=== PATIENT | female | born 1980 | race Caucasian/White ===

== ENCOUNTER 2025-02-25 13:10 | Observation (INO) | payer OTHER ==
[2025-02-25 14:16] LABS: Basophils # (A) 0.02 10*3/uL (0.00-0.10); Basophils % (A) 0.2 %; Eosinophils # (A) 0.14 10*3/uL (0.04-0.35); Eosinophils % (A) 1.3 %; HCT 38.3 % (37.2-46.3); HGB 13.6 g/dL (12.0-15.0); Lymphocytes # (A) 2.14 10*3/uL (0.90-5.00); Lymphocytes % (A) 19.4 %; MCH 28.8 pg (27.0-32.0); MCHC 35.5 g/dL (32.0-37.0); MCV 81.0 fL (80.0-97.0); Monocytes # (A) 0.52 10*3/uL (0.20-1.00); Monocytes % (A) 4.7 %; Neutrophils # (A) 8.18 10*3/uL (1.80-7.70); Neutrophils % (A) 74.0 %; Platelet Count 247 10*3/uL (140-440); RBC 4.73 10*6/uL (4.10-5.20); RDW 12.7 % (11.5-14.5); WBC 11.04 10*3/uL (4.50-10.00)
[2025-02-25 14:30] LABS: ALT 19 U/L (4-34); AST 26 U/L (14-36); African American GFR (CKD) >90 (>60 ml/min/1.73 sqM); Albumin 4.0 g/dL (3.5-5.0); Alkaline Phosphatase 83 U/L (38-126); Anion Gap 9 mmol/L; Blood Urea Nitrogen 16 mg/dL (7-17); Calcium 9.7 mg/dL (8.4-10.2); Carbon Dioxide 30 mmol/L (22-30); Chloride 97 mmol/L (98-107); Glucose 94 mg/dL (74-99); Magnesium 1.9 mg/dL (1.6-2.3); Non-African American GFR(CKD) >90 (>60 ml/min/1.73 sqM); Potassium 3.5 mmol/L (3.5-5.1); Sodium 136 mmol/L (137-145); Total Protein 6.5 g/dL (6.3-8.2)
--- NOTE | 2025-02-25 14:31 | XR ---
EXAMINATION TYPE: XR chest 2V DATE OF EXAM: 02/25/2025 2:17 PM COMPARISON: None TECHNIQUE: XR chest 2V Frontal and lateral views of the chest. CLINICAL INDICATION:Female, 44 years old with history of Chest Pain; FINDINGS: Patient is rotated which limits evaluation. Lungs/Pleura: There is no evidence of pleural effusion, focal consolidation, or pneumothorax. Pulmonary vascularity: Unremarkable. Heart/mediastinum: Cardiomediastinal silhouette is unremarkable. Musculoskeletal: No acute osseous pathology. IMPRESSION: No acute cardiopulmonary disease/process. [facility], , 02/25/2025 2:29 PM
[2025-02-25] MEDS ORDERED: NITROGLYCERIN SL TABS 0.4 MG TAB SUBLINGUAL PRN (14:32)
--- NOTE | 2025-02-25 14:32 | ED ---
General Adult HPI - General Chief complaint: Chest Pain Stated complaint: Chest pain Time Seen by Provider: 02/25/25 13:20 Source: patient, EMS, RN notes reviewed, old records reviewed Mode of arrival: EMS Limitations: no limitations - History of Present Illness Initial comments: This is a 44-year-old female who presents to the emergency department comp laining of chest pain. Patient states she has a past medical history significant for high blood pressure congestive heart failure smoking history and family history of heart disease. Patient states she was at [facility] since yesterday for fentanyl and methamphetamine abuse. Patient states today she started having chest pain just while she was eating lunch and it became quite severe. Patient denied any radiation of the pain. Patient states she did have some shortness of breath. Patient states on the way end they gave her aspirin and a nitroglycerin and it did seem to reduce her pain. Patient states she still has a subtle amount of pain at this time but it is almost gone. Patient denies any fever chills - Related Data Allergies Allergy/AdvReac Type Severity Reaction Status Date / Time lamotrigine [From Lamictal] Allergy Rash/Hives Verified 02/25/25 13:24 quetiapine [From Seroquel] Allergy Rash/Hives Verified 02/25/25 13:24 Review of Systems ROS Statement: Those systems with pertinent positive or pertinent negative responses have been documented in the HPI. ROS Other: All systems not noted in ROS Statement are negative. Past Medical History Past Medical History: Heart Failure, Hypertension Past Surgical History: Section, Cholecystectomy, Hysterectomy, Ort hopedic Surgery Past Psychological History: Bipolar, Depression Smoking Status: Current every day smoker Past Alcohol Use History: None Reported Past Drug Use History: Methamphetamine General Exam - General Exam Comments Initial Comments: GENERAL: Patient is well-developed and well-nourished. Patient is nontoxic and well-hydrated and is in mild distress. ENT: Neck is soft and supple. No significant lymphadenopathy is noted. Oropharynx is clear. Moist mucous membranes. Neck has full range of motion without eliciting any pain. EYES: The sclera were anicteric and conjunctiva were pink and moist. Extraocular movements were intact and pupils were equal round and reactive to light. Eyelids were unremarkable. PULMONARY: Unlabored respirations. Good breath sounds bilaterally. No audible rales rhonchi or wheezing was noted. CARDIOVASCULAR: There is a regular rate and rhythm without any murmurs gallops or rubs. ABDOMEN: Soft and nontender with normal bowel sounds. SKIN: Skin is clear with no lesions or rashes and otherwise unremarkable. NEUROLOGIC: Patient is alert and oriented x3. Cranial nerves II through XII are grossly intact. Motor and sensory are also intact. Normal speech, volume and content. Symmetrical smile. MUSCULOSKELETAL: Normal extremities with adequate strength and full range of motion. LYMPHATICS: No significant lymphadenopathy is noted PSYCHIATRIC: Normal psychiatric evaluation. Limitations: no limitations Course Vital Signs 02/25/25 13:18 Temperature 98 F Pulse Rate 67 Respiratory 20 Rate Blood Pressure 99/71 O2 Sat by Pulse 99 Oximetry Medical Decision Making - Medical Decision Making EKG is interpreted by myself. EKG shows a sinus rhythm at 65 bpm FL of 134 QRS 101 QT interval is 430 QTc is 441. Patient's EKG shows T wave inversions in leads V1 through V3. There is no ST segment elevation. Was pt. sent in by a medical professional or institution (, PA, BUSINESS OFFICE COORDINATOR, urgent care, hospital, or group home...) When possible be specific @ -No Did you speak to anyone other than the patient for history (EMS, parent, family, police, friend...)? What history was obtained from this source @ -No Did you review nursing and triage notes (agree or disagree)? Why? @ -I reviewed and agree with nursing and triage notes Were old charts reviewed (outside hosp., previous admission, EMS record, old EKG, old radiological studies, urgent care reports/EKG's, group home records)? Report findings @ -No old charts were reviewed Differential Diagnosis? @ -Differential Chest Pain: Stable Angina, Unstable Angina, STEMI, NSTEMI Aortic Dissection, Pneumothorax, Musculoskeletal, Esophageal Spasm GERD, Cholecystitis, Pancreatitis, Zoster, this is not meant to be an all-inclusive list. EKG interpreted by me (3pts min.). @ -As above X-rays interpreted by me (1pt min.). @ -Chest x-ray shows no acute abnormality CT interpreted by me (1pt min.). @ -None done U/S interpreted by me (1pt. min.). @ -None done What testing was considered but not performed or refused? (CT, X-rays, U/S, labs)? Why? @ -None What meds were considered but not given or refused? Why? @ -None Did you discuss the management of the patient with other professionals (professionals i.e. , PA, BUSINESS OFFICE COORDINATOR, lab, RT, psych nurse, pediatric social worker, business law instructor, teacher, navy senior officer, residential case manager)? Give summary @ -[facility] the patient admitted the patient I wrote a bitting orders. Was smoking cessation discussed for >3mins.? @ -No Was critical care preformed (if so, how long)? @ -No Were there social determinants of health that impacted care today? How? (Homelessness, low income, unemployed, alcoholism, drug addiction, transportation, low edu. Level, literacy, decrease access to med. care, correction, rehab)? @ -No Was there de-escalation of care discussed even if they declined (Discuss DNR or withdrawal of care, Hospice)? DNR status @ -No What co-morbidities impacted this encounter? (DM, HTN, Smoking, COPD, CAD, Cancer, CVA, ARF, Chemo, Hep., AIDS, mental health diagnosis, sleep apnea, morbid obesity)? @ -None Was patient admitted / discharged? Hospital course, mention meds given and route, prescriptions, significant lab abnormalities, going to OR and other pertinent info. @ -Patient came in for chest pain. EKG did show some T wave abnormalities. Patient states nitroglycerin on the way end helped her pain. [facility] and a cardiology consult will be placed. Undiagnosed new problem with uncertain prognosis? @ -No Drug Therapy requiring intensive monitoring for toxicity (Heparin, Nitro, Insulin, Cardizem)? @ -No Were any procedures done? @ -No Diagnosis/symptom? @ -Chest pain Acute, or Chronic, or Acute on Chronic? @ -Acute Uncomplicated (without systemic symptoms) or Complicated (systemic symptoms)? @ -Complicated Side effects of treatment? @ -No Exacerbation, Progression, or Severe Exacerbation? @ -No Poses a threat to life or bodily function? How? (Chest pain, [place], [place], pneumonia, PE, COPD, DKA, ARF, appy, cholecystitis, CVA, Diverticulitis, Homicidal, Suicidal, threat to staff... and all critical care pts) @ -Yes this could lead to an [place] and endorgan dysfunction - Lab Data Result diagrams: 02/25/25 13:58 Lab Results 02/25/25 Range/Units 13:58 WBC 11.04 H (4.50-10.00) 10*3/uL RBC 4.73 (4.10-5.20) 10*6/uL Hgb 13.6 (12.0-15.0) g/dL Hct 38.3 (37.2-46.3) % MCV 81.0 (80.0-97.0) fL MCH 28.8 (27.0-32.0) pg MCHC 35.5 (32.0-37.0) g/dL Plt Count 247 (140-440) 10*3/uL MPV 8.9 L (9.5-12.2) fL Immature Gran % (Auto) 0.4 % Neutrophils % 74.0 % Lymphocytes % 19.4 % Monocytes % 4.7 % Eosinophils % 1.3 % Basophils % 0.2 % Immature Gran # 0.04 (0.00-0.04) 10*3/uL Neutrophils # 8.18 H (1.80-7.70) 10*3/uL Lymphocytes # 2.14 (0.90-5.00) 10*3/uL Monocytes # 0.52 (0.20-1.00) 10*3/uL Eosinophils # 0.14 (0.04-0.35) 10*3/uL Basophils # 0.02 (0.00-0.10) 10*3/uL Disposition Clinical Impression: Chest pain Disposition: ADMITTED IP TO THIS [facility] Referrals: Nonstaff,Physician [Primary Care Provider] - 1-2 days Time of Disposition: 14:32
[2025-02-25 14:34] LABS: INR 1.0 (<1.2); Partial Thromboplastin Time 25.9 sec (22.0-30.0); Prothrombin Time 10.6 sec (10.0-12.5)
[2025-02-25 14:38] LABS: NT-Pro-B-Type Natriuretic Pept <20 pg/mL
[2025-02-25] MEDS: ACETAMINOPHEN TAB 325 MG TAB PO PRN (17:54)
[2025-02-25] MEDS: NITROGLYCERIN OINT 1 INCH/GM PACKET TOPICAL SCH (18:59)
[2025-02-26 08:36] VITALS: BP 122/86; PULSE 68; RESP 10; TEMP 98.8
[2025-02-26] MEDS ORDERED: MELATONIN 5 MG TABLET PO PRN (08:40)
[2025-02-26] MEDS ORDERED: ALBUTEROL NEBULIZED 2.5 MG/3 ML INHALATION PRN (08:40)
[2025-02-26] MEDS: buPROPion XL 300 MG TAB.ER.24H PO SCH (09:24)
[2025-02-26] MEDS: buPROPion XL 150 MG TAB.ER.24H PO SCH (09:24)
[2025-02-26] MEDS: ARIPiprazole 5 MG TAB PO SCH (09:24)
[2025-02-26] MEDS: CHLORTHALIDONE 25 MG TAB PO SCH (09:24)
[2025-02-26] MEDS: ESCITALOPRAM 10 MG TAB PO SCH (09:24)
[2025-02-26] MEDS: PATIENT'S OWN (Linaclotide [Linzess] 290 MCG Capsule) PO SCH (09:25)
[2025-02-26] MEDS: ASPIRIN 325 MG TAB PO SCH (09:29)
[2025-02-26] MEDS: ASPIRIN 81 MG PO SCH (09:50)
[2025-02-26] MEDS: ATORVASTATIN 40 MG TAB PO SCH (09:50)
[2025-02-26] MEDS: PANTOPRAZOLE 40 MG TABLET PO SCH (09:50)
[2025-02-26 10:11] LABS: Cholesterol 148.00 mg/dL (0.00-200.00); HDL Cholesterol 40.90 mg/dL (40.00-60.00); LDL Cholesterol,Calculated 77.7 mg/dL (0.0-131.0); Triglycerides 147.00 mg/dL (0.00-149.00); VLDL Calculation 29.40 mg/dL (5.00-40.00)
[2025-02-26 10:16] LABS: Magnesium 1.8 mg/dL (1.6-2.3)
[2025-02-26] MEDS: METHADONE 10 MG TAB PO SCH (13:16)
[2025-02-26] MEDS: METHADONE 5 MG TAB PO SCH (13:18)
--- NOTE | 2025-02-26 15:17 | P.HPIM ---
History of Present Illness H&P Date: 02/26/25 History of present illness; patient 44-year-old lady with past medical history significant for hypertension, congestive heart failure presented the ER for chest pain. Patient is currently undergoing treatment for fentanyl and methamphetamine abuse at [facility]. Patient that she was all right yesterday while eating lunch she started having chest pain of central location, pressure-like, nonradiating ,no aggravating or relieving factor associated with this chest pain. There was no complaint of orthopnea or PND. patient was complaint of shortness of breath at time. There was no episode of diaphoresis during this episode of chest pain. Patient denies any palpitation. Denies any nausea, vomiting abdominal pain. Patient denies any complaint of dizziness. There is no complaint of headache. Because of chest pain, patient came to the ER Initial lab work done in the ER showed WBC 11.04, hemoglobin 13.6, platelet count 247, sodium 130, potassium 3.5, BUN 16, creatinine 0.66, glucose 94, calcium 9.7 magnesium 1.9, TSH 0.426 EKG done in the ER showed heart rate of 65, no ST segment elevation or depression seen, no T-wave inversions seen. Chest x-ray done in the ER showed no acute cardiopulmonary process Patient admitted to internal medicine service REVIEW OF SYSTEMS: CONSTITUTIONAL: No fever, no malaise, no fatigue. HEENT: No recent visual problems or hearing problems. Cardiovascular; as mentioned above PULMONARY: As mentioned above GASTROINTESTINAL: No diarrhea, no nausea, no vomiting, no abdominal pain. NEUROLOGICAL: No headaches, no weakness, no numbness. HEMATOLOGICAL: Denies any bleeding or petechiae. GENITOURINARY: Denies any burning micturition, frequency, or urgency. MUSCULOSKELETAL/RHEUMATOLOGICAL: Denies any joint pain, swelling, or any muscle pain. ENDOCRINE: Denies any polyuria or polydipsia. The rest of the 14-point review of systems is negative. PHYSICAL EXAMINATION: GENERAL: The patient is alert and oriented x3, not in any acute distress. Well developed, well nourished. HEENT: Pupils are round and equally reacting to light. EOMI. No scleral icterus. No conjunctival pallor. Normocephalic, atraumatic. No pharyngeal erythema. No thyromegaly. CARDIOVASCULAR: S1 and S2 present. No murmurs, rubs, or gallops. PULMONARY: Chest is clear to auscultation, no wheezing or crackles. ABDOMEN: Soft, nontender, nondistended, normoactive bowel sounds. No palpable organomegaly. MUSCULOSKELETAL: No joint swelling or deformity. EXTREMITIES: No cyanosis, clubbing, or pedal edema. NEUROLOGICAL: Gross neurological examination did not reveal any focal deficits. SKIN: No rashes. Assessment and plan Chest pain, rule out acute coronary syndrome History of hypertension History of fentanyl and methamphetamine abuse Monitor vital signs Monitor CBC Monitor CMP Continue telemetry monitoring Trend troponins Aspirin, Lipitor Resume breathing treatments Resume lisinopril Cardiology consulted Labs and medication were reviewed.. Continue same treatment. Continue with symptomatic treatment. Resume home medication. Monitor labs and vitals. DVT and GI prophylaxis. Further recommendations as per clinical course of the patient Dictation was produced using [employer] dictation software. please excuse any grammatical, word or spelling errors. Past Medical History Past Medical History: Heart Failure, Hypertension History of Any Multi-Drug Resistant Organisms: None Reported Past Surgical History: Section, Cholecystectomy, Hysterectomy, Orthopedic Surgery Past Anesthesia/Blood Transfusion Reactions: No Reported Reaction Past Psychological History: Bipolar, Depression Smoking Status: Current every day smoker Past Alcohol Use History: None Reported Past Drug Use History: Methamphetamine, Opiates Additional Drug Use History / Comment(s): uses fentanyl and meth currently in [place] for states been using it for meds Medications and Allergies Home Medications Medication Instructions Recorded Confirmed Type ARIPiprazole [Abilify] 5 mg PO DAILY 02/25/25 02/25/25 History Acetaminophen Tab [Tylenol] 650 mg PO Q4H PRN 02/25/25 02/25/25 History Albuterol Inhaler [Ventolin Hfa 2 puff INHALATION RT-QID PRN 02/25/25 02/25/25 History Inhaler] Budesonide/Formoterol Fumarate 1 puff INHALATION RT-BID 02/25/25 02/25/25 History [Symbicort 160-4.5 Mcg Inhaler] Chlorthalidone [Hygroton] 25 mg PO DAILY 02/25/25 02/25/25 History Escitalopram [Lexapro] 10 mg PO DAILY 02/25/25 02/25/25 History Ibuprofen [Motrin Ib] 600 mg PO Q6H PRN 02/25/25 02/25/25 History Linaclotide [Linzess] 290 mcg PO DAILY 02/25/25 02/25/25 History Melatonin 10 mg PO HS 02/25/25 02/25/25 History Potassium Chloride ER [K-Dur 10] 10 meq PO DAILY 02/25/25 02/25/25 History Semaglutide [Wegovy] 1.7 mg SQ TH 02/25/25 02/25/25 History buPROPion HCL [Wellbutrin XL] 150 mg PO DAILY 02/25/25 02/25/25 History buPROPion XL [Wellbutrin XL] 300 mg PO DAILY 02/25/25 02/25/25 History lisinopriL [Zestril] 20 mg PO DAILY 02/25/25 02/25/25 History traZODone HCL [Desyrel] 100 mg PO HS 02/25/25 02/25/25 History Aspirin 81 mg PO DAILY 30 Days #30 tab 02/26/25 Rx Atorvastatin [Lipitor] 40 mg PO DAILY #30 tab 02/26/25 Rx Methadone [Dolophine] 115 mg PO DAILY 02/26/25 02/26/25 History Allergies Allergy/AdvReac Type Severity Reaction Status Date / Time lamotrigine [From Lamictal] Allergy Rash/Hives Verified 02/25/25 15:41 quetiapine [From Seroquel] Allergy Rash/Hives Verified 02/25/25 15:41 Physical Exam Vitals: Vital Signs Temp Pulse Pulse Resp BP BP Pulse Ox 02/26/25 07:00 98.8 F 68 10 L 122/86 99 02/26/25 01:08 61 18 02/26/25 00:22 97.8 F 54 L 18 121/79 95 02/25/25 21:22 61 18 02/25/25 20:00 97.4 F L 61 18 98/57 98 02/25/25 17:00 83 18 128/79 97 02/25/25 13:18 98 F 67 20 99/71 99 Intake and Output 02/25/25 02/26/25 02/26/25 22:59 06:59 14:59 Other: Voiding Method Toilet Toilet # Voids 1 2 Weight 86.183 kg Results CBC & Chem 7: 02/25/25 13:58 02/25/25 13:58 Labs: Abnormal Lab Results - Last 24 Hours (Table) 02/25/25 02/25/25 02/26/25 Range/Units 13:58 13:58 09:44 WBC 11.04 H (4.50-10.00) 10*3/uL MPV 8.9 L (9.5-12.2) fL Neutrophils # 8.18 H (1.80-7.70) 10*3/uL Sodium 136 L (137-145) mmol/L Chloride 97 L (98-107) mmol/L TSH 0.426 L (0.465-4.680) mIU/L Thrombosis Risk Factor Assmnt - Choose All That Apply Any of the Below Risk Factors Present?: No Other Risk Factors: No Other congenital or acquired thrombophilia - If yes, enter type in comment: No Thrombosis Risk Factor Assessment Level: Very Low Risk
--- NOTE | 2025-02-26 17:06 | P.CRDCN ---
History of Present Illness Consult date: 02/26/25 History of present illness: HISTORY OF PRESENTING ILLNESS: 44-year-old recently moved to [place] for rehab from fentanyl and methamphetamine use. She is from [place]. She presented to the hospital because of substernal chest pressure which is very atypical in description. Got worse after eating got better after resting for some time. No exertional symptoms in last few days. 1 pack tobacco smoker, occasional marijuana use occasional alcohol use ......... ................................................................................ ..................................................... Admission ECG showed sinus rhythm with no significant ST-T wave changes concerning for acute ischemia BP 121/79, heart rate 61 bpm Labs were reviewed and were essentially within normal limits with normal troponin x 3, normal NT-proBNP, LDL 77, triglyceride 147, TSH 0.4, A1c 5.1 ................................................................................ .............................................................. ............................................ ................................................................................ .................. REVIEW OF SYSTEMS: 14 point review of system is negative except what is mentioned above in HPI. ..... ................................................................................ ......................................................... PHYSICAL EXAMINATION: Neck: Brisk carotid upstroke, no jugular venous distention. Lungs: Clear to auscultation. Heart: Regular rate and rhythm, S1-S2, , no murmur or rub. Abdomen: Soft nontender, positive bowel sounds. Extremities: No edema, intact distal pulses. Neuro: Alert, oritented, no focal deficits. Detailed neuro exam was not performed. .............. ................................................................................ ................................................ ASSESSMENT: # Atypical chest pain, ACS-rule out # Hypertension # Obesity # Polysubstance abuse with fentanyl and methamphetamine # Tobacco smoker, occasional alcohol use occasional marijuana use PLAN: Recommend aspirin 81 mg, Lipitor 40 mg Continue lisinopril 20 mg which is her home medication I recommended to perform echocardiogram and a treadmill echo stress test however patient is unwilling to stay until Friday. [facility] has not provided us the facility of performing echo and stress test over the weekend and patient is not willing to stay. 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 [place] Patient is cleared from cardiovascular standpoint Cecilio Ceron MD, FACC, RPVI Past Medical History Past Medical History: Heart Failure, Hypertension History of Any Multi-Drug Resistant Organisms: None Reported Past Surgical History: Section, Cholecystectomy, Hysterectomy, Orthopedic Surgery Past Anesthesia/Blood Transfusion Reactions: No Reported Reaction Past Psychological History: Bipolar, Depression Smoking Status: Current every day smoker Past Alcohol Use History: None Reported Past Drug Use History: Methamphetamine, Opiates Additional Drug Use History / Comment(s): uses fentanyl and meth currently in [place] for states been using it for meds Medications and Allergies Home Medications Medication Instructions Recorded Confirmed Type ARIPiprazole [Abilify] 5 mg PO DAILY 02/25/25 02/25/25 History Acetaminophen Tab [Tylenol] 650 mg PO Q4H PRN 02/25/25 02/25/25 History Albuterol Inhaler [Ventolin Hfa 2 puff INHALATION RT-QID PRN 02/25/25 02/25/25 History Inhaler] Budesonide/Formoterol Fumarate 1 puff INHALATION RT-BID 02/25/25 02/25/25 History [Symbicort 160-4.5 Mcg Inhaler] Chlorthalidone [Hygroton] 25 mg PO DAILY 02/25/25 02/25/25 History Escitalopram [Lexapro] 10 mg PO DAILY 02/25/25 02/25/25 History Ibuprofen [Motrin Ib] 600 mg PO Q6H PRN 02/25/25 02/25/25 History Linaclotide [Linzess] 290 mcg PO DAILY 02/25/25 02/25/25 History Melatonin 10 mg PO HS 02/25/25 02/25/25 History Potassium Chloride ER [K-Dur 10] 10 meq PO DAILY 02/25/25 02/25/25 History Semaglutide [Wegovy] 1.7 mg SQ TH 02/25/25 02/25/25 History buPROPion HCL [Wellbutrin XL] 150 mg PO DAILY 02/25/25 02/25/25 History buPROPion XL [Wellbutrin XL] 300 mg PO DAILY 02/25/25 02/25/25 History lisinopriL [Zestril] 20 mg PO DAILY 02/25/25 02/25/25 History traZODone HCL [Desyrel] 100 mg PO HS 02/25/25 02/25/25 History Aspirin 81 mg PO DAILY 30 Days #30 tab 02/26/25 Rx Atorvastatin [Lipitor] 40 mg PO DAILY #30 tab 02/26/25 Rx Methadone [Dolophine] 115 mg PO DAILY 02/26/25 02/26/25 History Allergies Allergy/AdvReac Type Severity Reaction Status Date / Time lamotrigine [From Lamictal] Allergy Rash/Hives Verified 02/25/25 15:41 quetiapine [From Seroquel] Allergy Rash/Hives Verified 02/25/25 15:41 Physical Exam Vitals: Vital Signs Temp Pulse Resp BP Pulse Ox 02/26/25 07:00 98.8 F 68 10 L 122/86 99 02/26/25 01:08 61 18 02/26/25 00:22 97.8 F 54 L 18 121/79 95 02/25/25 21:22 61 18 02/25/25 20:00 97.4 F L 61 18 98/57 98 Intake and Output 02/26/25 02/26/25 02/26/25 06:59 14:59 22:59 Other: Voiding Method Toilet # Voids 2 Results 02/25/25 13:58 02/25/25 13:58 Cardiac Enzymes 02/25/25 02/25/25 Range/Units 16:59 20:19 Troponin I <0.012 <0.012 (0.000-0.034) ng/mL Lipids 02/25/25 Range/Units 13:58 Triglycerides 147.00 (0.00-149.00) mg/dL Cholesterol 148.00 (0.00-200.00) mg/dL HDL Cholesterol 40.90 (40.00-60.00) mg/dL Cholesterol/HDL Ratio 3.62 Ratio Intake and Output 02/26/25 02/26/25 02/26/25 06:59 14:59 22:59 Other: Voiding Method Toilet # Voids 2 02/25/25 13:58 02/25/25 13:58
[2025-02-26] MEDS ORDERED: SYMBICORT 160-4.5 MCG INHALER INHALATION SCH (20:00)
[2025-02-27 01:10] LABS: Cholesterol 184.00 mg/dL (0.00-200.00); HDL Cholesterol 41.60 mg/dL (40.00-60.00); LDL Cholesterol,Calculated 98.6 mg/dL (0.0-131.0); T4, Free (Free Thyroxine) 0.97 ng/dL (0.80-1.80); Triglycerides 219.00 mg/dL (0.00-149.00); VLDL Calculation 43.80 mg/dL (5.00-40.00)
--- NOTE | 2025-03-01 15:07 | P.DS ---
Providers Date of admission: 02/25/25 14:33 Expected date of discharge: 02/27/25 Attending physician: Tavon Colindres MD Consults: 02/25/25 14:32 Consult Physician Urgent Consulting Provider: [facility] Consult Reason/Comments: Chest pain Do you want consulting provider notified?: Yes Primary care physician: Stated None Hospital Course: Discharge diagnoses; Chest pain, ACS ruled History of hypertension History of fentanyl and methamphetamine abuse Hospital course; patient 44-year-old lady with past medical history significant for hypertension, congestive heart failure presented the ER for chest pain. Patient is currently undergoing treatment for fentanyl and methamphetamine abuse at [facility]. Patient that she was all right yesterday while eating lunch she started having chest pain of central location, pressure-like, nonradiating ,no aggravating or relieving factor associated with this chest pain. There was no complaint of orthopnea or PND. patient was complaint of shortness of breath at time. There was no episode of diaphoresis during this episode of chest pain. Patient denies any palpitation. Denies any nausea, vomiting abdominal pain. Patient denies any complaint of dizziness. There is no complaint of headache. Because of chest pain, patient came to the ER Initial lab work done in the ER showed WBC 11.04, hemoglobin 13.6, platelet count 247, sodium 130, potassium 3.5, BUN 16, creatinine 0.66, glucose 94, calcium 9.7 magnesium 1.9, TSH 0.426 EKG done in the ER showed heart rate of 65, no ST segment elevation or depre ssion seen, no T-wave inversions seen. Chest x-ray done in the ER showed no acute cardiopulmonary process Patient admitted to internal medicine service. Patient was evaluated by cardiology, they recommended stress test for which patient needed to stay in the hospital over the weekend which patient refused, outpatient stress test was being set up by cardiology PHYSICAL EXAMINATION: GENERAL: The patient is alert and oriented x3, not in any acute distress. Well developed, well nourished. HEENT: Pupils are round and equally reacting to light. EOMI. No scleral icterus. No conjunctival pallor. Normocephalic, atraumatic. No pharyngeal erythema. No thyromegaly. CARDIOVASCULAR: S1 and S2 present. No murmurs, rubs, or gallops. PULMONARY: Chest is clear to auscultation, no wheezing or crackles. ABDOMEN: Soft, nontender, nondistended, normoactive bowel sounds. No palpable organomegaly. MUSCULOSKELETAL: No joint swelling or deformity. EXTREMITIES: No cyanosis, clubbing, or pedal edema. NEUROLOGICAL: Gross neurological examination did not reveal any focal deficits. SKIN: No rashes. Dictation was produced using [employer] dictation software. please excuse any grammatical, word or spelling errors. Plan - Discharge Summary Discharge Rx Participant: Yes New Discharge Prescriptions: New Atorvastatin [Lipitor] 40 mg PO DAILY #30 tab Aspirin 81 mg PO DAILY 30 Days #30 tab Continue Acetaminophen Tab [Tylenol] 650 mg PO Q4H PRN PRN Reason: Pain Or Fever > 100.5 Albuterol Inhaler [Ventolin Hfa Inhaler] 2 puff INHALATION RT-QID PRN PRN Reason: Shortness Of Breath traZODone HCL [Desyrel] 100 mg PO HS Potassium Chloride ER [K-Dur 10] 10 meq PO DAILY Budesonide/Formoterol Fumarate [Symbicort 160-4.5 Mcg Inhaler] 1 puff INHALATION RT-BID Linaclotide [Linzess] 290 mcg PO DAILY buPROPion HCL [Wellbutrin XL] 150 mg PO DAILY Semaglutide [Wegovy] 1.7 mg SQ TH Melatonin 10 mg PO HS Ibuprofen [Motrin Ib] 600 mg PO Q6H PRN PRN Reason: Pain Or Fever > 100.5 lisinopriL [Zestril] 20 mg PO DAILY Escitalopram [Lexapro] 10 mg PO DAILY Chlorthalidone [Hygroton] 25 mg PO DAILY buPROPion XL [Wellbutrin XL] 300 mg PO DAILY ARIPiprazole [Abilify] 5 mg PO DAILY No Action Methadone [Dolophine] 115 mg PO DAILY Discharge Medication List ARIPiprazole [Abilify] 5 mg PO DAILY 02/25/25 [History] Acetaminophen Tab [Tylenol] 650 mg PO Q4H PRN 02/25/25 [History] Albuterol Inhaler [Ventolin Hfa Inhaler] 2 puff INHALATION RT-QID PRN 02/25/25 [History] Budesonide/Formoterol Fumarate [Symbicort 160-4.5 Mcg Inhaler] 1 puff INHALATION RT-BID 02/25/25 [History] Chlorthalidone [Hygroton] 25 mg PO DAILY 02/25/25 [History] Escitalopram [Lexapro] 10 mg PO DAILY 02/25/25 [History] Ibuprofen [Motrin Ib] 600 mg PO Q6H PRN 02/25/25 [History] Linaclotide [Linzess] 290 mcg PO DAILY 02/25/25 [History] Melatonin 10 mg PO HS 02/25/25 [History] Potassium Chloride ER [K-Dur 10] 10 meq PO DAILY 02/25/25 [History] Semaglutide [Wegovy] 1.7 mg SQ TH 02/25/25 [History] buPROPion HCL [Wellbutrin XL] 150 mg PO DAILY 02/25/25 [History] buPROPion XL [Wellbutrin XL] 300 mg PO DAILY 02/25/25 [History] lisinopriL [Zestril] 20 mg PO DAILY 02/25/25 [History] traZODone HCL [Desyrel] 100 mg PO HS 02/25/25 [History] Aspirin 81 mg PO DAILY 30 Days #30 tab 02/26/25 [Rx] Atorvastatin [Lipitor] 40 mg PO DAILY #30 tab 02/26/25 [Rx] Methadone [Dolophine] 115 mg PO DAILY 02/26/25 [History] Follow up Appointment(s)/Referral(s): Nonstaff,Physician [REFERRING] - 1-2 days Activity/Diet/Wound Care/Special Instructions: Patient is cleared for discharge from 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
[2025-03-03] MEDS ORDERED: SEMAGLUTIDE 1.7 MG/0.75 ML SQ SCH (09:00)
== END 2025-02-26 14:50 | disposition home or self-care (01) ==
LOC: EC 13:10 → 6NMEDSUR 14:33
PROVIDERS: ADMIT Internal Medicine; ATTEND Internal Medicine
DX: R07.89 Other chest pain (principal); F17.210 Nicotine dependence, cigarettes, uncomplicated; I11.0 Hypertensive heart disease with heart failure; I50.9 Heart failure, unspecified; F11.10 Opioid abuse, uncomplicated; F12.90 Cannabis use, unspecified, uncomplicated; F15.10 Other stimulant abuse, uncomplicated; E66.9 Obesity, unspecified; Z79.82 Long term (current) use of aspirin; Z79.51 Long term (current) use of inhaled steroids; Z79.899 Other long term (current) drug therapy; Z88.8 Allergy status to other drugs, medicaments and biological substances; Z82.49 Family history of ischemic heart disease and other diseases of the circulatory system
CPT/HCPCS: 99285; 36415; 93005; 84439; 83880; 80061 ×2; 80053; 84443; 83735 ×2; 84484; 85025; 85610; 85730; 83036; 71046; G0378 ×3; S0109 ×2; 87086